=== PATIENT | male | born 1980 | race Caucasian/White ===

== ENCOUNTER 2018-10-24 21:30 | Emergency (ER) | payer OTHER ==
[~2018-10-24] VITALS: Ht 177.8 cm; Wt 95.3 kg
[2018-10-24 21:36] VITALS: Ht 177.8 cm; Wt 95.3 kg
[2018-10-24 22:39] VITALS: BP 136/74
== END 2018-10-24 22:39 | disposition home or self-care (01) ==
LOC: ED 21:30
DX: S83.91XA Sprain of unspecified site of right knee, initial encounter (principal); X58.XXXA Exposure to other specified factors, initial encounter; Y93.89 Activity, other specified; Y92.89 Other specified places as the place of occurrence of the external cause; Y99.8 Other external cause status

== ENCOUNTER 2019-04-06 15:09 | Emergency (ER) | payer MEDICAID ==
[~2019-04-06] VITALS: Ht 177.8 cm; Wt 98.9 kg
[2019-04-06 15:12] VITALS: Ht 177.8 cm; Wt 98.9 kg
[2019-04-06 16:00] LABS: PLATELET COUNT 282 x10^3mcL (130-400); RED CELL DISTRIBUTION WIDTH 13.4 % (11.5-14.5)
[2019-04-06 16:05] LABS: BASOPHIL % 2.9 % (0-2)
[2019-04-06 16:30] LABS: CALCIUM 8.6 mg/dL (8.5-10.1); CARBON DIOXIDE 24.9 mmol/L (21-32); CHLORIDE SERUM 107 mmol/L (98-107); GFR1 > 60 mL/min; GLUCOSE SERUM 105 mg/dL (74-106); POTASSIUM SERUM 4.1 mmol/L (3.5-5.1); SODIUM SERUM 143 mmol/L (136-145)
[2019-04-06 16:34] LABS: ALBUMIN 3.5 g/dL (3.4-5.0); ALKALINE PHOSPHATASE 86 U/L (46-116); AMYLASE 75 U/L (25-115); BILIRUBIN TOTAL 0.35 mg/dL (0.20-1.00); LIPASE 90 IU/L (73-393); TOTAL PROTEIN, SERUM 7.4 g/dL (6.4-8.2)
[2019-04-06 16:44] LABS: AST/SGOT 20 U/L (15-37)
[2019-04-06 16:50] VITALS: BP 139/92
[2019-04-06 17:01] LABS: ALT/SGPT 33 U/L (16-63)
== END 2019-04-06 17:37 | disposition home or self-care (01) ==
LOC: ED 15:09
PROVIDERS: Emergency Medicine
DX: A08.4 Viral intestinal infection, unspecified (principal); K21.9 Gastro-esophageal reflux disease without esophagitis
CPT/HCPCS: C9113; J2405; J7030

== ENCOUNTER 2019-07-15 22:08 | Emergency (ER) | payer MEDICAID ==
[~2019-07-15] VITALS: Ht 177.8 cm; Wt 100.7 kg
[2019-07-15 22:25] VITALS: Ht 177.8 cm; Wt 100.7 kg
[2019-07-16 02:36] VITALS: BP 151/75
== END 2019-07-16 02:36 | disposition home or self-care (01) ==
LOC: ED 22:08
DX: J32.9 Chronic sinusitis, unspecified (principal)

== ENCOUNTER 2020-11-10 14:59 | Emergency (ER) | payer MEDICAID ==
[~2020-11-10] VITALS: Ht 177.8 cm; Wt 100.2 kg
[2020-11-10 16:20] VITALS: BP 125/85
== END 2020-11-10 16:20 | disposition home or self-care (01) ==
LOC: ED 14:59
DX: L02.414 Cutaneous abscess of left upper limb (principal); F11.10 Opioid abuse, uncomplicated
CPT/HCPCS: J2001

== ENCOUNTER 2020-11-11 13:30 | Emergency (ER) | payer MEDICAID ==
[~2020-11-11] VITALS: Ht 177.8 cm; Wt 98.4 kg
[2020-11-11 13:36] VITALS: BP 131/83; Ht 177.8 cm; Wt 98.4 kg
== END 2020-11-11 13:58 | disposition home or self-care (01) ==
LOC: ED 13:30
DX: L02.512 Cutaneous abscess of left hand (principal); Z48.00 Encounter for change or removal of nonsurgical wound dressing

== ENCOUNTER 2020-12-12 06:27 | Emergency (ER) | payer MEDICAID ==
[~2020-12-12] VITALS: Ht 177.8 cm; Wt 99.3 kg
[2020-12-12 06:50] VITALS: Ht 177.8 cm; Wt 99.3 kg
[2020-12-12] MEDS ORDERED: MOT600 PO (08:22)
[2020-12-12 08:48] VITALS: BP 107/71
== END 2020-12-12 08:48 | disposition home or self-care (01) ==
LOC: ED 06:27
DX: M25.561 Pain in right knee (principal)
CPT/HCPCS: J1885

== ENCOUNTER 2020-12-23 15:57 | Emergency (ER) | payer MEDICAID ==
[~2020-12-23] VITALS: Ht 177.8 cm; Wt 99.3 kg
[~2020-12-23 15:57] MED LIST: MOT600 PO
[2020-12-23 16:08] VITALS: Ht 177.8 cm; Wt 99.3 kg
[2020-12-23] MEDS ORDERED: IBU600 M2 PO (17:42)
[2020-12-23] MEDS ORDERED: BACTRIM DS1 TAB PO (17:42)
[2020-12-23] MEDS ORDERED: KEF500 PO (17:42)
[2020-12-23 18:12] VITALS: BP 138/80
== END 2020-12-23 18:12 | disposition home or self-care (01) ==
LOC: ED 15:57
DX: L02.416 Cutaneous abscess of left lower limb (principal); L03.116 Cellulitis of left lower limb; F11.10 Opioid abuse, uncomplicated
CPT/HCPCS: J0696; J1885; J2001

== ENCOUNTER 2020-12-25 13:19 | Emergency (ER) | payer MEDICAID ==
[~2020-12-25] VITALS: Ht 177.8 cm; Wt 95.3 kg
[~2020-12-25 13:19] MED LIST changes: +BACTRIM DS1 TAB PO; +IBU600 M2 PO; +KEF500 PO
[2020-12-25 13:32] VITALS: Ht 177.8 cm; Wt 95.3 kg
[2020-12-25 14:04] VITALS: BP 109/45
== END 2020-12-25 14:04 | disposition home or self-care (01) ==
LOC: ED 13:19
DX: L02.416 Cutaneous abscess of left lower limb (principal)